=== PATIENT | male | born 1940 | race Caucasian/White ===

== ENCOUNTER 2017-04-10 11:53 | Observation (INO) | payer OTHER ==
[~2017-04-10] VITALS: Ht 175.3 cm; Wt 82.9 kg
[~2017-04-10 11:53] MED LIST: LISINOPRIL2.5 MG PO; LO-DOSE ASPIRIN81 M1 PO; MEDROL DOSEPAK4 MG PO; METOPROLOL TART25 MG PO; PROAIR HFA8.5 GM IH; PROMETHAZINE12.5 M1 PO; ROBITUSSIN LON118 ML PO; ZITHROMAX500 MG PO
[2017-04-10 12:36] LABS: BASOPHIL COUNT 0.1 K/uL (0-0.1); EOSINOPHIL (%) 0.9 % (0-5); EOSINOPHIL COUNT 0.1 K/uL (0-0.3); HEMATOCRIT 46.8 % (38.0-50.0); IMMATURE GRANULOCYTE (%) 0.7 % (0.0-0.7); IMMATURE GRANULOCYTE COUNT 0.1 K/uL; INSTRUMENT ABS NEUTROPHIL CT 4.6 K/uL; MCH 31.2 PG (29.0-34.0); MCHC 34.8 G/DL (30.0-36.0); MCV 89.7 FL (86-99); MEAN PLAT.VOLUME 9.9 uM^3 (9.0-12.4); NEUTROPHIL COUNT 4.6 K/uL (1.8-6.4); PLATELET COUNT 162 K/uL (156-360); RBC DIS.WIDTH-CV 13.3 % (11.8-14.6); RBC DIS.WIDTH-SD 44.3 % (39-53); RED BLOOD COUNT 5.22 M/uL (4.00-5.50); WHITE BLOOD COUNT 6.8 K/uL (4.1-10.2)
[2017-04-10 12:43] LABS: INTER. NORMALIZED RATIO 1.1; PROTHROMBIN TIME 11.6 SEC (10.2-12.9)
[2017-04-10 12:45] LABS: CHLORIDE 105 mEq/L (99-109); POTASSIUM 4.4 mEq/L (3.7-5.4); PTT 31.4 SEC (25-37); SODIUM 136 mEq/L (136-147)
[2017-04-10 12:47] LABS: GLUCOSE 90 mg/dL (70-99)
[2017-04-10 12:48] LABS: ANION GAP 7 MEQ/L (2-14)
[2017-04-10 12:49] LABS: TOTAL BILIRUBIN 1.7 mg/dL (0.0-1.0)
[2017-04-10 12:51] LABS: ALKALINE PHOSPHATASE 60 IU/L (3-129); GFR ESTIMATE (CALCULATED) 49 mL/min/
[2017-04-10 12:52] LABS: DIRECT BILIRUBIN 0.5 mg/dL (0.0-0.3); UREA NITROGEN (BUN) 11 mg/dL (9-23)
[2017-04-10 13:01] LABS: TROP-I INTERPRETATION NEGATIVE; TROPONIN-I < 0.01 ng/mL (0.0-0.30)
[2017-04-10] MEDS ORDERED: TYLENOL EXTRA500 MG PO (13:57)
[2017-04-10 16:15] LABS: D-DIMER ELISA < 150.00 ng/mLDDU (<230)
[2017-04-10 17:00] VITALS: BP 171/79
[2017-04-10 19:38] LABS: TROP-I INTERPRETATION NEGATIVE; TROPONIN-I 0.02 ng/mL (0.0-0.30)
[2017-04-10 20:15] VITALS: BP 149/74
[2017-04-11 00:55] VITALS: BP 137/63
[2017-04-11 01:25] LABS: TROP-I INTERPRETATION NEGATIVE; TROPONIN-I < 0.01 ng/mL (0.0-0.30)
[2017-04-11 05:44] LABS: ALKALINE PHOSPHATASE 45 IU/L (3-129); ANION GAP 8 MEQ/L (2-14); CHLORIDE 106 MEQ/L (99-109); GFR ESTIMATE (CALCULATED) 53 mL/min/; GLUCOSE 93 mg/dL (70-99); POTASSIUM 4.7 MEQ/L (3.7-5.4); SAMPLE HEMOLYSIS CHECK 0; SAMPLE ICTERIC CHECK 0; SAMPLE LIPEMIA CHECK 0; SODIUM 138 MEQ/L (136-147); TOTAL BILIRUBIN 2.1 MG/DL (0.0-1.0); UREA NITROGEN (BUN) 11 mg/dL (9-23)
[2017-04-11 06:04] VITALS: BP 138/68
[2017-04-11 07:54] VITALS: BP 152/82
[2017-04-11 11:30] VITALS: BP 111/61
== END 2017-04-11 13:05 | disposition home or self-care (01) ==
LOC: EME → EDBD 11:53 → EME 11:53 → EDOF 15:32 → 4EAST 15:32 → ENRESERV 15:39 → 4EAST 17:10
PROVIDERS: Emergency Medicine; Physician Assistant Medical
DX: R07.9 Chest pain, unspecified (principal); R00.8 Other abnormalities of heart beat; I12.9 Hypertensive chronic kidney disease with stage 1 through stage 4 chronic kidney disease, or unspecified chronic kidney disease; N18.3 Chronic kidney disease, stage 3 (moderate); C44.309 Unspecified malignant neoplasm of skin of other parts of face; Z98.890 Other specified postprocedural states; Z82.49 Family history of ischemic heart disease and other diseases of the circulatory system; Z79.82 Long term (current) use of aspirin; Z95.2 Presence of prosthetic heart valve; Z87.891 Personal history of nicotine dependence; Z88.6 Allergy status to analgesic agent
CPT/HCPCS: 71010; 80048; 80053; 80076; 83880; 84484; 85025; 85379; 85610; 85730; 93005; 93306; 99281; 99284; G0378; J1650